=== PATIENT | female | born 1955 | race Caucasian/White ===

== ENCOUNTER 2017-05-14 03:47 | Emergency (ER) | payer OTHER, SELFPAY ==
[2017-05-14] MEDS ORDERED: Ketorolac Tromethamine 60 MG/2 ML VIAL ONE (06:53)
--- NOTE | 2017-05-14 08:08 | RAD ---
RIGHT HIP 2 VIEWS: HISTORY: Right hip injury. FINDINGS: There is mild joint space narrowing and osteophytosis. Femoral head contour is maintained. No acut e fracture, dislocation, or aggressive osseous erosions are apparent. IMPRESSION: Mild osteoarthritic changes right hip. POS: OFF
== END 2017-05-14 06:40 | disposition home or self-care (01) ==
LOC: ERS 03:47
DX: M53.3 Sacrococcygeal disorders, not elsewhere classified (principal); F31.9 Bipolar disorder, unspecified; F17.210 Nicotine dependence, cigarettes, uncomplicated
CPT/HCPCS: 96372; J1885